=== PATIENT | male | born 1985 ===

== ENCOUNTER 2018-02-17 23:36 | Emergency (ER) | payer BC ==
[2018-02-18] MEDS ORDERED: Sodium Chloride 0.9% 1,000 ML IV ONE (00:08)
[2018-02-18] MEDS ORDERED: Sodium Chloride 0.9% 1,000 ML ONE (00:23)
--- NOTE | 2018-02-18 00:30 | C.PDOC ---
History Of Present Illness Patient is a 32 y/o male who presents to the ED [facility] with complaints of sudden onset of dizziness, vertigo, and headache. Patient admits to experiencing prior episodes of the same. Patient has Hx of vasovagal syncope with positive tilt test. No other physical complaints at this time. Time Seen by Provider: 02/17/18 23:51 Chief Complaint (Nursing): Dizziness/Lightheaded History Per: Patient History/Exam Limitations: no limitations Onset/Duration Of Symptoms: Sudden Onset Current Symptoms Are (Timing): Still Present Fall Associated With With Symptoms: No Past Medical History Reviewed: Historical Data, Nursing Documentation, Vital Signs Vital Signs: Last Vital Signs Temp 98.3 F 02/17/18 23:40 Pulse 81 02/17/18 23:40 Resp 20 02/17/18 23:40 BP 104/71 02/17/18 23:40 Pulse Ox 100 02/18/18 00:33 - Medical History Other PMH: vasovagal syncope Surgical History: No Surg Hx Family History: States: No Known Family Hx - Social History Hx Tobacco Use: No Hx Alcohol Use: No Hx Substance Use: No - Immunization History Hx Tetanus Toxoid Vaccination: No Hx Influenza Vaccination: No Hx Pneumococcal Vaccination: No Review Of Systems Neurological: Positive for: Headache, Dizziness, Other (vertigo) Physical Exam - Physical Exam Appears: Non-toxic, In Acute Distress (moderate) Skin: Normal Color, Warm, Dry Head: Atraumatic, Normacephalic Eye(s): bilateral: Photophobia (mild) Ear(s): Bilateral: Normal Oral Mucosa: Moist Chest: Symmetrical Cardiovascular: Rhythm Regular, No Murmur Respiratory: Normal Breath Sounds, No Rales, No Rhonchi, No Wheezing Gastrointestinal/Abdominal: Soft, No Tenderness Extremity: Normal ROM (x4) Neurological/Psych: Oriented x3, Normal Speech, Normal Cognition Gait: Steady ED Course And Treatment - Laboratory Results Result Diagrams: 02/18/18 00:34 02/18/18 00:34 Lab Interpretation: Normal (ua neg. preg neg.) O2 Sat by Pulse Oximetry: 100 Pulse Ox Interpretation: Normal Progress Note: EKG, blood work, HCG urine and UA ordered. Toradol, antivert, and IV fluids administered. Reevaluation Time: 01:01 Reassessment Condition: Improved Medical Decision Making Medical Decision Making: pt's "typical" vasovagal episode, but occured while sitting watching TV ddx: panic/anxiety but pt denies s/s resolved with ED tx. does not seem vasovagal. Disposition Doctor Will See Patient In The: Office Counseled Patient/Family Regarding: Studies Performed, Diagnosis - Disposition Disposition: HOME/ ROUTINE Disposition Time: 01:02 Condition: GOOD Forms: [facility] (Turkmen) - Clinical Impression Clinical Impression: Dizziness - Scribe Statement The provider has reviewed the documentation as recorded by the Scribe Aziza Bonner All medical record entries made by the Humbertoibe were at my direction and personally dictated by me. I have reviewed the chart and agree that the record accurately reflects my personal performance of the history, physical exam, medical decision making, and the department course for this patient. I have also personally directed, reviewed, and agree with the discharge instructions and disposition.
[2018-02-18 00:42] LABS: BASO # 0.1 K/uL (0.0-0.2); BASO % 1.2 % (0.0-2.0); EOS # 0.1 K/uL (0.0-0.7); EOS % 1.6 % (0.0-4.0); LYMPH # 2.3 K/uL (1.0-4.3); LYMPH % 25.5 % (20.0-40.0); MEAN CORPUSCULAR HEMOGLOBIN 29.9 pg (27.0-31.0); MEAN CORPUSCULAR HGB CONC 33.7 g/dL (33.0-37.0); MEAN PLATELET VOLUME 10.4 fL (7.2-11.7); MONO # 0.4 K/uL (0.0-0.8); NEUT # 6.1 K/uL (1.8-7.0); NEUT % 67.7 % (50.0-75.0); RBC 4.01 Mil/uL (4.40-5.90); RED CELL DISTRIBUTION WIDTH 12.7 % (11.5-14.5)
[2018-02-18 00:49] LABS: SQUAMOUS EPITHIAL 1 /hpf (0-5); URINE BACTERIA RARE (<OCC); URINE BILIRUBIN NEGATIVE (NEGATIVE); URINE BLOOD NEGATIVE (NEGATIVE); URINE CLARITY Clear (Clear); URINE COLOR Yellow (YELLOW); URINE GLUCOSE (UA) NORMAL (Normal); URINE LEUKOCYTE ESTERASE NEG Leu/uL (Negative); URINE PROTEIN NEGATIVE (NEGATIVE)
[2018-02-18 00:52] LABS: ALB/GLOB RATIO 1.3 (1.0-2.1); ALBUMIN 3.9 g/dL (3.5-5.0); ALT/SGPT 15 U/L (21-72); AST/SGOT 16 U/L (17-59); BLOOD UREA NITROGEN 19 mg/dL (9-20); CALCIUM 9.1 mg/dl (8.6-10.4); GFR AFRICAN-AMERICAN > 60; GFR NON-AFRICAN AMERICAN > 60
[2018-02-18 00:52] LABS: HCG,QUALITATIVE URINE NEGATIVE
[2018-02-18 01:07] LABS: INR 1.1; PARTIAL THROMBOPLASTIN TIME 33 SECONDS (21-34); PROTHROMBIN TIME 12.1 SECONDS (9.7-12.2)
[2018-02-18 01:08] LABS: D DIMER < 200 ng/mlDDU (0-243)
[2018-02-18 01:12] VITALS: BP 103/56; PULSE 84; RESP 18; TEMP 97.9; O2SAT 99
[2018-02-18 01:19] LABS: BARBITURATES, UR NEGATIVE (NEGATIVE); BENZODIAZEPINES, UR NEGATIVE (NEGATIVE); OPIATES, UR NEGATIVE (NEGATIVE); PHENCYCLIDINE, UR NEGATIVE (NEGATIVE)
--- NOTE | 2018-02-19 11:59 | CARD ---
APPROVED REPORT EKG Measurement Heart [id number] <Conclusion> Normal sinus rhythm Normal ECG
== END 2018-02-18 01:13 | disposition home or self-care (01) ==
LOC: C.ER 23:36
DX: R42 Dizziness and giddiness (principal)
CPT/HCPCS: 80053; 81001; 84484; 84703; 85025; 85378; 85610; 85730; 93005; 96374; 99285; G0480; J1885; J7030